=== PATIENT | male | born 2000 | race Caucasian/White ===

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

== ENCOUNTER 2021-03-23 02:01 | Emergency (ER) | payer MEDICAID, SELFPAY ==
[~2021-03-23] VITALS: Ht 144.8 cm; Wt 49.9 kg
[~2021-03-23 02:01] MED LIST changes: +AMOX-999 PO; -CETI5SOL GT; +DIAZ10TA7 PR; -FLONAS NS; +FLUT0.0560 NS; +KEP500L GT; -LACT10CA1 PO; -LEVO750T2 PO; +LOTC TP; +MONT10TA35 PO; -MONT5CTB GT; +MULT-2246 GT; -OXCA150T2 PO; +OXCA300T PO; -PEDI18TA GT; +PYRI-218 GT; -VITB6I GT
[2021-03-23 02:08] VITALS: BP 146/86
--- NOTE | 2021-03-23 02:30 | NUR ---
PATIENT LEFT WITHOUT BEING SEEN BY DR. JONES. NO FURTHER CARE PROVIDED FOR PATIENT.
[2021-03-23] MEDS ORDERED: ACETAMINOPHEN 650 MG/20.3 ML UDC GT ONE (03:40)
[2021-03-23 04:05] LABS: BASOPHILS % (AUTO) 0.1 % (0.0-2.0); EOSINOPHILS % (AUTO) 0.1 % (0.0-4.0); HEMATOCRIT 46.9 % (36-52); HEMOGLOBIN 16.4 g/dL (12.0-18.0); LYMPHOCYTES # (AUTO) 2.8 K/uL (2.0-11.5); LYMPHOCYTES % (AUTO) 30.6 % (20.5-51.1); MEAN CORPUSCULAR HEMOGLOBIN 34 pg (27-31); MEAN CORPUSCULAR HGB CONC 35 g/dL (33-37); MEAN CORPUSCULAR VOLUME 95.7 fL (80-94); MONOCYTES # (AUTO) 1.3 K/uL (0.8-1.0); MONOCYTES % (AUTO) 13.9 % (1.7-9.3); NEUTROPHILS % (AUTO) 55.3 % (42.2-75.2); PLATELET COUNT (AUTO) 193 K/uL (140-450)
[2021-03-23 04:22] LABS: ALBUMIN 3.7 g/dL (3.4-5.0); ANION GAP 13.6 (8-16); CREATININE 0.6 mg/dL (0.6-1.3); POTASSIUM 3.6 mmol/L (3.5-5.1); TOTAL BILIRUBIN 0.9 mg/dL (0.0-1.0)
[2021-03-23] MEDS ORDERED: ACETAMINOPHEN 650 MG/20.3 ML UDC ONE (05:30)
== END 2021-03-23 02:30 | disposition left against medical advice (07) ==
LOC: MED 02:01
DX: R39.198 Other difficulties with micturition (principal); R53.83 Other fatigue; J44.9 Chronic obstructive pulmonary disease, unspecified; K21.9 Gastro-esophageal reflux disease without esophagitis; Z98.890 Other specified postprocedural states; Z79.899 Other long term (current) drug therapy; Z88.8 Allergy status to other drugs, medicaments and biological substances
CPT/HCPCS: 36415; 71045; 80053; 85025; 99284; Q0092